=== PATIENT | male | born 1940 | race Caucasian/White ===

== ENCOUNTER 2016-09-14 20:56 | Emergency (ER) | payer BC ==
[~2016-09-14] VITALS: Ht 172.7 cm; Wt 80.3 kg
[~2016-09-14 20:56] MED LIST: ASPI81TA21 PO; CRD4 PO; CYAN10005 PO; FRRG27 PO; MULT-506 PO; NAPR220T40 PO; PRLSR20 PO; PRN10125 PO; SIMV20TA2 PO
[2016-09-14 20:58] VITALS: TEMP 36.5; Ht 172.7 cm; Wt 80.3 kg
[2016-09-14] MEDS ORDERED: KETOROLAC TROMETHAMINE 30 MG/ML VIAL IV STA (21:54)
--- NOTE | 2016-09-14 22:13 | EMERGENCY ROOM VISIT NOTE ---
History Report prepared by Hever: Giovanny Mora Under the Supervision of: Dr. Morgan Alan M.D. First contact with patient: 21:43 Chief Complaint: CHEST PAIN Stated Complaint: LT SIDE CHEST PAIN, SHOULDER PAIN Nursing Triage Summary: patient with history of this intermittent shoulder chest spasms that come and go. states he has had them before but not as bad as this is now. states that he has some nausea with the pain. no cardiac history History of Present Illness The patient is a 75 year old male who presents to the Emergency Room with complaints of intermittent and severe left sided chest pain which radiates to his left shoulder starting this morning. The pain lasts for a few seconds at a time. He has some pain relief with applying heat. He has a history of similar symptoms occurring with inflammatory joint disease. However, he reports his current pain is much more severe than normal. He denies any recent injuries, shortness of breath, nausea, vomiting, or any other complaints. He denies any history of heart disease. He has a history of hypertension. He takes 81 mg Aspirin but denies any other blood thinners. His pain is episodic and feels like a spasm it is worse if he moves certain ways. No injury or trauma. No numbness weakness. No fever or chills. No lightheadedness or dizziness. Source of History: patient, spouse/significant other Onset: this morning Position: chest (left) Symptom Intensity: severe Timing: intermittent Modifying Factors (Relieving): heat Associated Symptoms: No SOB, No nausea, No vomiting Review of Systems See HPI for pertinent positives & negatives. A total of 10 systems reviewed and were otherwise negative. Past Medical & Surgical Medical Problems: (1) Hypertension Old medical records were reviewed. Nurse's notes were reviewed and I agree with. Denies history of cardiac disease, diabetes, hypertension, pulmonary disease Family History Patient reports no known family medical history. Social History Smoking Status: Former Smoker Drug Use: none Marital Status: Occupation Status: employed Current/Historical Medications Scheduled Aspirin Enteric Coated (Ecotrin Or Generic), 81 MG PO DAILY Cyanocobalamin (Vitamin B-12), 1,000 MCG PO DAILY Doxazosin Mesylate (Cardura *), 6 MG PO QPM Ferrous Gluconate (Iron Supplement), 27 MG PO DAILY Hydrochlorothiazide (Hctz), 12.5 MG PO DAILY Simvastatin (Zocor), 20 MG PO QPM Scheduled PRN Naproxen Sodium (Aleve), 220 MG PO Q4H PRN Omeprazole (Prilosec), 20 MG PO DAILY PRN Allergies Coded Allergies: No Known Allergies (Verified , ., 09/14/16) Physical Exam Vital Signs Date Time Temp Pulse Resp B/P Pulse Ox O2 Delivery O2 Flow Rate FiO2 09/14/16 23:37 72 16 123/81 95 09/14/16 22:59 82 18 102/68 09/14/16 21:31 71 09/14/16 20:58 36.5 81 20 147/85 93 Room Air Physical Exam General: Non-ill appearing, older male, in no acute distress. HEENT: Normal cephalic atraumatic. Pupils are equal round and reactive to light. Sclerae anicteric. Extraocular movements are intact. Oropharynx is pink with moist mucous membranes. No swelling of the mouth lips or tongue. Neck: Supple with a midline trachea. No meningeal signs or stiffness, no JVD or bruits. No Stridor. Chest: Clear to auscultation bilaterally. No wheezes or rhonchi. No increased work of breathing. Heart: regular rate and rhythm. Abdomen: Soft nontender, nondistended without rebound guarding or rigidity. Extremities: No cyanosis clubbing or edema. No calf tenderness or assymetry. Reproducible arm pain with movement. Spine/Back. Non tender to palpation. No CVA tenderness Skin: Good turgor without rashes. Neurologic exam: Cranial nerves two through 12 are intact. Motor and sensation are intact and symmetrical throughout. Medical Decision & Procedures ER Provider Diagnostic Interpretation: X-ray results as stated below per interpretation by me and the radiologist: CHEST ONE VIEW PORTABLE CLINICAL HISTORY: CHEST PAIN dyspnea COMPARISON STUDY: 02/07/2014 FINDINGS: Mild stable cardiomegaly. Fixed hiatal hernia. Plaque atelectasis left base. Lungs otherwise appear clear. IMPRESSION: Platelike atelectasis left base. Fixed hiatal hernia. Otherwise negative study. Electronically signed by: Frankie Heath M.D. 09/14/2016 10:14 PM Laboratory Results 09/14/16 22:20 Red Blood Count 4.61, Mean Corpuscular Volume 89.8, Mean Corpuscular Hemoglobin 31.2, Mean Corpuscular Hemoglobin Concent 34.8, Mean Platelet Volume 10.1, Neutrophils (%) (Auto) 79.2, Lymphocytes (%) (Auto) 7.8, Monocytes (%) (Auto) 12.3, Eosinophils (%) (Auto) 0.4, Basophils (%) (Auto) 0.1, Neutrophils # (Auto ) 7.90, Lymphocytes # (Auto) 0.78, Monocytes # (Auto) 1.23, Eosinophils # (Auto ) 0.04, Basophils # (Auto) 0.01 09/14/16 22:20 Test 09/14/16 22:20 09/14/16 22:32 White Blood Count 9.98 K/uL (4.8-10.8) Red Blood Count 4.61 M/uL (4.7-6.1) Hemoglobin 14.4 g/dL (14.0-18.0) Hematocrit 41.4 % (42-52) Mean Corpuscular Volume 89.8 fL (80-100) Mean Corpuscular Hemoglobin 31.2 pg (25-34) Mean Corpuscular Hemoglobin Concent 34.8 g/dl (32-36) Platelet Count 138 K/uL (130-400) Mean Platelet Volume 10.1 fL (7.4-10.4) Neutrophils (%) (Auto) 79.2 % Lymphocytes (%) (Auto) 7.8 % Monocytes (%) (Auto) 12.3 % Eosinophils (%) (Auto) 0.4 % Basophils (%) (Auto) 0.1 % Neutrophils # (Auto) 7.90 K/uL (1.4-6.5) Lymphocytes # (Auto) 0.78 K/uL (1.2-3.4) Monocytes # (Auto) 1.23 K/uL (0.11-0.59) Eosinophils # (Auto) 0.04 K/uL (0-0.5) Basophils # (Auto) 0.01 K/uL (0-0.2) RDW Standard Deviation 40.2 fL (36.4-46.3) RDW Coefficient of Variation 12.3 % (11.5-14.5) Immature Granulocyte % (Auto) 0.2 % Immature Granulocyte # (Auto) 0.02 K/uL (0.00-0.02) Anion Gap 8.0 mmol/L (3-11) Est Creatinine Clear Calc Drug Dose 56.1 ml/min Estimated GFR () 75.7 Estimated GFR (Non- 65.3 BUN/Creatinine Ratio 27.3 (10-20) Calcium Level 9.2 mg/dl (8.5-10.1) Total Creatine Kinase 154 U/L (39-308) Creatine Kinase MB 4.7 ng/ml (0.5-3.6) Creatine Kinase MB Ratio 3.1 (0-3.0) Bedside Troponin I 0.000 ng/ml (0-0.045) Laboratory studies as stated above per my review. Medications Administered Medications (Trade) Dose Ordered Sig/Reta Route Start Time Stop Time Status Last Admin Dose Admin Ketorolac Tromethamine (Toradol Inj) 30 mg NOW STAT IV 09/14/16 21:54 09/14/16 21:57 DC 09/14/16 22:32 30 MG ECG Indication: chest pain Rate (beats per minute): 75 Rhythm: normal sinus Findings: no acute ischemic change, no ectopy Comparison ECG Date: January 15, 2009 Change: Rate has increased, otherwise no change when compared to January 15, 2009. ED Course 2142: Past medical records reviewed. The patient was evaluated in room B04B, and a complete history and physical examination were performed. 2153: Toradol Inj 30 mg IV 2310: Upon reevaluation, the patient is feeling better. I discussed the results and treatment plan with him. He verbalized agreement of the treatment plan. The patient was discharged home. Medical Decision Differential diagnosis includes but is not limited to acute coronary syndrome, arrhythmia, musculoskeletal, infection, electrolyte or metabolic abnormality. This patient comes in as described above he's having pain in his left shoulder. He does have a history of rheumatologic issues and has pain just seems to worse. He looks well on exam. He was minimally tender however when I moved his shoulder this reproduced the pain significantly. It's not red or warm. it seems he tender along the scapula. He has no evidence of infection. IV access established. He was given 30 mg of Toradol IV and blood testing was obtained. EKG does not suggest any acute cardiac event or ischemia. Chest x-ray was unremarkable shows. No pneumonia or pneumothorax or CHF. He has no acute electrolyte or metabolic abnormalities. He feels significantly better. His troponin is not elevated and his symptoms are very atypical for cardiac disease. He strongly feels up to going home at think this is reasonable. I encouraged him have close follow-up with the next 1-3 was regular doctor and return to the ER if: increasing pain, worsening of symptoms, fever or chills, any new problems concerns. He was happy with plan and discharged to home. Impression Primary Impression: Left shoulder pain Scribe Attestation The scribe's documentation has been prepared under my direction and personally reviewed by me in its entirety. I confirm that the note above accurately reflects all work, treatment, procedures, and medical decision making performed by me. Departure Information Dispostion Home / Self-Care Referrals Jarteh Cristina M.D. (PCP) Forms HOME CARE DOCUMENTATION FORM, IMPORTANT VISIT INFORMATION Patient Instructions A Signature Page, My [facility] Additional Instructions Rest Drink plenty of fluids Use Aleve or ibuprofen if needed for pain Return if: Increasing pain, worsening of symptoms, shortness of breath, any new problems or concerns. Follow-up with your doctor in 1-2 days for recheck
--- NOTE | 2016-09-14 22:16 | DIAGNOSTIC IMAGING REPORT ---
CHEST ONE VIEW PORTABLE CLINICAL HISTORY: CHEST PAIN dyspnea COMPARISON STUDY: 02/07/2014 FINDINGS: Mild stable cardiomegaly. Fixed hiatal hernia. Plaque atelectasis left base. Lungs otherwise appear clear. IMPRESSION: Platelike atelectasis left base. Fixed hiatal hernia. Otherwise negative study. Electronically signed by: Frankie Heath M.D. 09/14/2016 10:14 PM
[2016-09-14 22:37] LABS: BASO % 0.1 %; BASO ABS # 0.01 K/uL (0-0.2); COMPLETE YES; EOS % 0.4 %; HEMATOCRIT 41.4 % (42-52); IG% 0.2 %; LYMPH % 7.8 %; LYMPH ABS # 0.78 K/uL (1.2-3.4); MEAN CELL VOLUME 89.8 fL (80-100); MEAN CORPUSCULAR HEMOGLOBIN 31.2 pg (25-34); MEAN CORPUSCULAR HGB CONC 34.8 g/dl (32-36); MEAN PLATELET VOLUME 10.1 fL (7.4-10.4); MONO % 12.3 %; NEUT % 79.2 %; PLATELET COUNT 138 K/uL (130-400); RED BLOOD COUNT 4.61 M/uL (4.7-6.1); WHITE BLOOD COUNT 9.98 K/uL (4.8-10.8)
[2016-09-14] MEDS ORDERED: HYDR12.56 PO (22:43)
[2016-09-14 22:53] LABS: BUN/CREATININE RATIO 27.3 (10-20); CALCIUM 9.2 mg/dl (8.5-10.1); CREATININE 1.1 mg/dl (0.60-1.40); POTASSIUM 4.1 mmol/L (3.5-5.1)
[2016-09-14 22:57] LABS: CKMB/CK RATIO 3.1 (0-3.0)
[2016-09-14 23:37] VITALS: BP 123/81; PULSE 72; O2SAT 95
[2016-11-22] MEDS ORDERED: IRON PO (13:29)
[2016-11-22] MEDS ORDERED: CYAN100020 PO (13:29)
[2016-11-22] MEDS ORDERED: NAPR1TAB9 PO (13:29)
[2016-11-22] MEDS ORDERED: HYDR12.55 PO (13:29)
[2016-11-22] MEDS ORDERED: ASPCH81X PO (13:29)
[2016-11-22] MEDS ORDERED: DOXA4TAB5 PO (13:29)
[2016-11-22] MEDS ORDERED: CALC8.5C PO (13:29)
[2016-11-22] MEDS ORDERED: SIMV20TA2 PO (13:29)
[2016-11-30] MEDS ORDERED: PRED1SUS3 OPR (06:36)
[2016-12-09] MEDS ORDERED: NEPA0.6D OPR (12:50)
== END 2016-09-14 23:40 | disposition home or self-care (01) ==
LOC: C.EDB 20:58
DX: M25.512 Pain in left shoulder (principal); I10 Essential (primary) hypertension; Z79.82 Long term (current) use of aspirin; Z79.899 Other long term (current) drug therapy

== ENCOUNTER → 2016-11-30 | Day surgery (SDC) | payer BC ==
[2016-11-22 13:29] VITALS: Ht 172.7 cm; Wt 79.5 kg
[~2016-11-30] VITALS: Ht 172.7 cm; Wt 79.5 kg
[~2016-11-30] MED LIST changes: +500ML BSS 0.3ML EPI 1:1000PF IRRIG ONE; +ACETAMINOPHEN 325 MG TAB PO PRN; +AMVISC PLUS 0.8ML SYRINGE INT OCU ONE; +ASPCH81X PO; -ASPI81TA21 PO; +ATROPINE SULFATE 0.1 MG/ML 5ML SYR IV PRN; +AcetaZOLAMIDE 250 MG TAB PO SCH; +BETAXOLOL HCL 0.25% OP SUSP PER DROP CHARGE OPR SCH; +BRIMONIDINE TART 0.2% OP SOLN PER DROP CHARGE ONE; +BSS FLUSH ONE; +CALC8.5C PO; -CRD4 PO; +CYAN100020 PO; -CYAN10005 PO; +DOXA-22 PO; +ENDOCOAT 0.85ML SYRINGE INT OCU ONE; +EpHEDrine SULFATE INJ 50 MG/ML AMP IV PRN; +EpINEphrine INJ 1MG/ML AMP 1 MG/ML AMP ONE; -FRRG27 PO; +HYDR12.55 PO; +IRON PO; +LACTATED RINGER'S 1000ML 500 ML IV SCH; +LIDOCAINE 4% OP SOLN DROP CHARGE ONE; +LIDOCAINE 4% OP SOLN DROP CHARGE OPR SCH; +LIDOCAINE HCL 1% MPF 2 ML VIAL ONE; +MIDAZOLAM HCL 1 MG/ML 2ML VIAL ONE; +MIX: 4ML BSS 1ML EPI 1:1000 PF INSTIL ONE; +MOXIFLOXACIN OPH SOLN PER DROP CHARGE ONE; -MULT-506 PO; +NAPR1TAB9 PO; -NAPR220T40 PO; +NEPA0.6D OPR; +OCUCOAT 1 ML SOLN IO ONE; +POVIDONE-IODINE OP SOLN 30 ML BTL ONE; +PRED1SUS3 OPR; -PRLSR20 PO; -PRN10125 PO; +PROPARACAINE 0.5% OP SOLN PER DROP CHARGE OPR SCH; +PROPARACAINE HCL 0.5% OP SOLN 15 ML BTL OPR ONE; +TOBRAMYCIN/DEXAMETHASONE OPH OINT PER APPLN CHARGE ONE
[2016-11-30] MEDS: PHENYLEPHRINE HCL 2.5% OP SOLN PER DROP CHARGE OPR SCH ×2 (06:30→06:35)
[2016-11-30] MEDS: TROPICAMIDE 1% OP SOLN PER DROP CHARGE OPR SCH ×2 (06:31→06:36)
[2016-11-30] MEDS: CYCLOPENTOLATE HCL 1% OP SOLN PER DROP CHARGE OPR SCH ×2 (06:32→06:37)
[2016-11-30] MEDS: MOXIFLOXACIN OPH SOLN PER DROP CHARGE OPR SCH ×2 (06:33→06:43)
[2016-11-30] MEDS: AcetaZOLAMIDE 250 MG TAB ONE (06:34)
--- NOTE | 2016-11-30 06:44 | History & Physical Bridge - SC ---
H&P Re-Evaluation Bridge Note: I have examined the patient, reviewed the History & Physical and in the interval since the performance of the History & Physical I have noted the following changes of clinical significance: No changes noted
--- NOTE | 2016-11-30 07:19 | Discharge Instructions-SurgCtr ---
Discharge Instructions Date of Service Nov 30, 2016. Visit Reason for Visit: Cataract Right Eye Discharge Discharge Diagnosis / Problem: lens implant right eye Discharge Goals Goal(s): Improve function Activity Recommendations Activity Limitations: resume your previous activity Lifting Limitations: no more than 10 pounds Exercise/Sports Limitations: gradually increase as tolerated May Resume Sexual Activity: when tolerated Shower/Bathe: tomorrow Driving or Machine Use: resume 1 day after discharge Anesthesia . Post Anesthesia Instructions: If you have had General Anesthesia or IV Sedation: * Do not drive today. * Resume driving when surgeon permits. * Do not make important decisions or sign legal documents today. * Call surgeon for: 1. Temperature elevations greater than 101 degrees F. 2. Uncontrollable pain. 3. Excessive bleeding. 4. Persistent nausea and vomiting. 5. Medication intolerance (nausea, vomiting or rash). * For nausea and vomiting use only clear liquids such as: tea, soda, bouillon until nausea subsides, then gradually increase diet as tolerated. * If you have any concerns or questions, call your surgeon's office. If physician is unavailable and it is an emergency, call 911 or go to the nearest emergency room. . Instructions / Follow-Up Instructions / Follow-Up ACTIVITY RECOMMENDATIONS: * Light activities. * Mild irritation and blurred vision are common for the first few days. * You may walk outside, read, watch television. * Redness around the white part of the eye is common. MEDICATIONS: Resume previous medications unless instructed otherwise by your surgeon. * Take white Diamox (Acetazolamide) tablet at 1 pm today. Start all eye drops at 1 pm today: * Eye drops (today and tomorrow): Prednisone - one drop in operative eye every 3 hours while awake Ofloxacin - one drop in operative eye every 3 hours while awake Ilevro - one drop in operative eye once a day SPECIAL CARE INSTRUCTIONS: * Tape plastic shield over eye to sleep at night. Call your doctor at with any concerns or problems. FOLLOW UP VISIT: Follow-up with Dr Barros at [place] office as scheduled. Diet Recommendations Home Diet: no limitations Procedures Procedures Performed: Right Cataract Phacoemulsification With Intraocular Lens Implant Pending Studies Studies pending at discharge: no Medical Emergencies . Who to Call and When: Medical Emergencies: If at any time you feel your situation is an emergency, please call 911 immediately. . Non-Emergent Contact Non-Emergency issues call your: Cat Dog Or Other Pet Groomer Call Non-Emergent contact if: your pain is not controlled [phone] . . "Provider Documentation" section prepared by Chester Barros.
[2016-11-30 07:23] VITALS: TEMP 36.5
--- NOTE | 2016-11-30 07:23 | [facility] Operative Report ---
Operative Report Date of Service Nov 30, 2016. Operative Report 1. PREOPERATIVE DIAGNOSIS: Senile nuclear cataract, right eye. 2. POSTOPERATIVE DIAGNOSIS: Senile nuclear cataract, right eye. 3. PROCEDURE: Phacoemulsification of right cataract with posterior chamber lens implant, type Bausch [employer] Lomb, model MX60, power +19.0 diopters. ANESTHESIA: Local standby. SURGEON: Dr. Barros. COMPLICATIONS: None. OPERATING TIME: 10 minutes. 4. OPERATION AND FINDINGS: DESCRIPTION OF PROCEDURE: The right pupil was dilated. The patient was transported to the femto laser. The laser was used to make the primary incision and a keratotomy incision and the capsulorrhexis and to divide the nucleus. The anesthetic was administered using a topical technique. The right eye was prepped and draped. A speculum was placed. A clear corneal incision was formed. The chamber was filled with Amvisc Plus and Endocoat. Epinephrine solution was used. A paracentesis was placed. The nucleus was hydrodissected. The lens was removed with phacoemulsification. Time was 2.13 seconds. The aspiration unit was used to remove the cortex. The capsule was filled with Amvisc Plus. The lens implant was folded and placed into the capsule. The incision was hydrated. The Amvisc was aspirated. The wound was secure. The chamber was deep. The pupil was round. TobraDex ointment and Vigamox solution were placed. The speculum was removed. The patient was returned to the Recovery Room in stable condition. I attest to the content of the Intraoperative Record and any orders documented therein. Any exceptions are noted below. The scribe's documentation has been prepared in my presence, under my direction and personally reviewed by me in its entirety. I confirm that the note above accurately reflects all work, treatment, procedures, and medical decision making performed by me. I personally scribed for Chester Barros M.D. ([email or web address]) on 11/30/16 at 07:23. Electronically submitted by Amanda Garcia ([email or web address]).
[2016-11-30 07:45] VITALS: BP 156/89; PULSE 65; O2SAT 95
--- NOTE | 2016-11-30 07:49 | Anesthesia Progress Nt - [facility] ---
Anesthesia Post Op Note Date & Time Nov 30, 2016 at 07:49 Vital Signs Pain Intensity: 0 Vital Signs Past 12 Hours Date Time Temp Pulse Resp B/P Pulse Ox O2 Delivery O2 Flow Rate FiO2 11/30/16 07:45 65 16 156/89 95 Room Air 11/30/16 07:23 36.5 64 12 150/90 96 Room Air 11/30/16 07:04 75 16 159/96 95 Room Air 11/30/16 06:57 67 18 160/96 94 Room Air 11/30/16 06:37 75 162/93 11/30/16 06:24 37.1 68 16 176/102 97 Room Air Notes Mental Status: alert / awake / arousable, participated in evaluation Pt Amnestic to Procedure: Yes Nausea / Vomiting: adequately controlled Pain: adequately controlled Airway Patency, RR, SpO2: stable & adequate BP & HR: stable & adequate Hydration State: stable & adequate Anesthetic Complications: no major complications apparent
== END | disposition home or self-care (01) ==
LOC: X.SURG 06:06
PROVIDERS: ATTEND Specialist
DX: H25.11 Age-related nuclear cataract, right eye (principal); I10 Essential (primary) hypertension

== ENCOUNTER → 2016-12-14 | Day surgery (SDC) | payer BC ==
[2016-12-09 12:50] VITALS: Ht 172.7 cm; Wt 79.5 kg
[~2016-12-14] VITALS: Ht 172.7 cm; Wt 79.5 kg
[~2016-12-14] MED LIST changes: +BETAXOLOL HCL 0.25% OP SUSP PER DROP CHARGE OPL SCH; -BETAXOLOL HCL 0.25% OP SUSP PER DROP CHARGE OPR SCH; -DOXA-22 PO; +DOXA4TAB5 PO; +LIDOCAINE 4% OP SOLN DROP CHARGE OPL SCH; -LIDOCAINE 4% OP SOLN DROP CHARGE OPR SCH; +PROPARACAINE 0.5% OP SOLN PER DROP CHARGE OPL SCH; -PROPARACAINE 0.5% OP SOLN PER DROP CHARGE OPR SCH; -PROPARACAINE HCL 0.5% OP SOLN 15 ML BTL OPR ONE
[2016-12-14] MEDS: PHENYLEPHRINE HCL 2.5% OP SOLN PER DROP CHARGE OPL SCH ×2 (09:19→09:24)
[2016-12-14] MEDS: TROPICAMIDE 1% OP SOLN PER DROP CHARGE OPL SCH ×2 (09:20→09:25)
[2016-12-14] MEDS: CYCLOPENTOLATE HCL 1% OP SOLN PER DROP CHARGE OPL SCH ×2 (09:21→09:26)
[2016-12-14] MEDS: MOXIFLOXACIN OPH SOLN PER DROP CHARGE OPL SCH ×2 (09:22→09:32)
--- NOTE | 2016-12-14 10:09 | Discharge Instructions-SurgCtr ---
Discharge Instructions Date of Service Dec 14, 2016. Visit Reason for Visit: Left Cataract Discharge Discharge Diagnosis / Problem: lens implant left eye Discharge Goals Goal(s): Improve function Activity Recommendations Activity Limitations: resume your previous activity Lifting Limitations: no more than 10 pounds Exercise/Sports Limitations: gradually increase as tolerated May Resume Sexual Activity: when tolerated Shower/Bathe: tomorrow Driving or Machine Use: resume 1 day after discharge Anesthesia . Post Anesthesia Instructions: If you have had General Anesthesia or IV Sedation: * Do not drive today. * Resume driving when surgeon permits. * Do not make important decisions or sign legal documents today. * Call surgeon for: 1. Temperature elevations greater than 101 degrees F. 2. Uncontrollable pain. 3. Excessive bleeding. 4. Persistent nausea and vomiting. 5. Medication intolerance (nausea, vomiting or rash). * For nausea and vomiting use only clear liquids such as: tea, soda, bouillon until nausea subsides, then gradually increase diet as tolerated. * If you have any concerns or questions, call your surgeon's office. If physician is unavailable and it is an emergency, call 911 or go to the nearest emergency room. . Instructions / Follow-Up Instructions / Follow-Up ACTIVITY RECOMMENDATIONS: * Light activities. * Mild irritation and blurred vision are common for the first few days. * You may walk outside, read, watch television. * Redness around the white part of the eye is common. MEDICATIONS: Resume previous medications unless instructed otherwise by your surgeon. Start all eye drops at 1 pm today: * Eye drops (today and tomorrow): Prednisone - one drop in operative eye every 3 hours while awake Ofloxacin - one drop in operative eye every 3 hours while awake Ilevro - one drop in operative eye once a day SPECIAL CARE INSTRUCTIONS: * Tape plastic shield over eye to sleep at night. Call your doctor at with any concerns or problems. FOLLOW UP VISIT: Follow-up with Dr Barros at [place] office as scheduled. Diet Recommendations Home Diet: no limitations Procedures Procedures Performed: cataract extraction with lens implant Pending Studies Studies pending at discharge: no Medical Emergencies . Who to Call and When: Medical Emergencies: If at any time you feel your situation is an emergency, please call 911 immediately. . Non-Emergent Contact Non-Emergency issues call your: Rhythmic Gymnastics Coach Call Non-Emergent contact if: your pain is not controlled [phone] . . "Provider Documentation" section prepared by Chester Barros.
--- NOTE | 2016-12-14 10:11 | [facility] Operative Report ---
Operative Report Date of Service Dec 14, 2016. Operative Report 1. PREOPERATIVE DIAGNOSIS: Senile nuclear cataract, left eye. 2. POSTOPERATIVE DIAGNOSIS: Senile nuclear cataract, left eye. 3. PROCEDURE: Phacoemulsification of left cataract with posterior chamber lens implant, type B[employer]ch [employer] Lomb, model MX60, power +17.5 diopters. ANESTHESIA: Local standby. SURGEON: Dr. Barros. COMPLICATIONS: None. OPERATING TIME: 10 minutes. 4. OPERATION AND FINDINGS: DESCRIPTION OF PROCEDURE: The left pupil was dilated. The anesthetic was administered using a topical technique. The left eye was prepped and draped. A speculum was placed. A clear corneal incision was formed. The chamber was filled with Amvisc Plus and Endocoat. Epinephrine solution was used. A paracentesis was placed. A capsulorrhexis was performed. The nucleus was hydrodissected. The lens was removed with phacoemulsification. Time was 3.02 seconds. The aspiration unit was used to remove the cortex. The capsule was filled with Amvisc Plus. The lens implant was folded and placed into the capsule. The incision was hydrated. The Amvisc was aspirated. The wound was secure. The chamber was deep. The pupil was round. Brimonidine, TobraDex ointment and Vigamox solution were placed. The speculum was removed. The patient was returned to the Recovery Room in stable condition. I attest to the content of the Intraoperative Record and any orders documented therein. Any exceptions are noted below. The scribe's documentation has been prepared in my presence, under my direction and personally reviewed by me in its entirety. I confirm that the note above accurately reflects all work, treatment, procedures, and medical decision making performed by me. I personally scribed for Chester Barros M.D. ([email or web address]) on 12/14/16 at 10:11. Electronically submitted by Amanda Garcia ([email or web address]).
[2016-12-14 10:15] VITALS: TEMP 36.8
--- NOTE | 2016-12-14 10:29 | Anesthesia Progress Nt - [facility] ---
Anesthesia Post Op Note Date & Time Dec 14, 2016 at 10:29 Vital Signs Pain Intensity: 0 Vital Signs Past 12 Hours Date Time Temp Pulse Resp B/P Pulse Ox O2 Delivery O2 Flow Rate FiO2 12/14/16 09:08 36.5 70 16 170/103 95 Room Air Notes Mental Status: alert / awake / arousable, participated in evaluation Pt Amnestic to Procedure: Yes Nausea / Vomiting: adequately controlled Pain: adequately controlled Airway Patency, RR, SpO2: stable & adequate BP & HR: stable & adequate Hydration State: stable & adequate Anesthetic Complications: no major complications apparent
[2016-12-14 10:54] VITALS: BP 150/88; PULSE 67; O2SAT 94
== END | disposition home or self-care (01) ==
LOC: X.SURG 08:59
PROVIDERS: ATTEND Specialist
DX: H25.12 Age-related nuclear cataract, left eye (principal); I10 Essential (primary) hypertension

== ENCOUNTER → 2017-01-04 | Outpatient (CLI) | payer BC ==
[~2017-01-04] MED LIST changes: -500ML BSS 0.3ML EPI 1:1000PF IRRIG ONE; -ACETAMINOPHEN 325 MG TAB PO PRN; -AMVISC PLUS 0.8ML SYRINGE INT OCU ONE; -ATROPINE SULFATE 0.1 MG/ML 5ML SYR IV PRN; -AcetaZOLAMIDE 250 MG TAB PO SCH; -BETAXOLOL HCL 0.25% OP SUSP PER DROP CHARGE OPL SCH; -BRIMONIDINE TART 0.2% OP SOLN PER DROP CHARGE ONE; -BSS FLUSH ONE; -ENDOCOAT 0.85ML SYRINGE INT OCU ONE; -EpHEDrine SULFATE INJ 50 MG/ML AMP IV PRN; -EpINEphrine INJ 1MG/ML AMP 1 MG/ML AMP ONE; -LACTATED RINGER'S 1000ML 500 ML IV SCH; -LIDOCAINE 4% OP SOLN DROP CHARGE ONE; -LIDOCAINE 4% OP SOLN DROP CHARGE OPL SCH; -LIDOCAINE HCL 1% MPF 2 ML VIAL ONE; -MIDAZOLAM HCL 1 MG/ML 2ML VIAL ONE; -MIX: 4ML BSS 1ML EPI 1:1000 PF INSTIL ONE; -MOXIFLOXACIN OPH SOLN PER DROP CHARGE ONE; -OCUCOAT 1 ML SOLN IO ONE; -POVIDONE-IODINE OP SOLN 30 ML BTL ONE; -PROPARACAINE 0.5% OP SOLN PER DROP CHARGE OPL SCH; -TOBRAMYCIN/DEXAMETHASONE OPH OINT PER APPLN CHARGE ONE
[2017-01-04 12:19] LABS: BASO % 0.5 %; BASO ABS # 0.02 K/uL (0-0.2); COMPLETE YES; EOS % 3.5 %; HEMATOCRIT 41.4 % (42-52); IG% 0.3 %; LYMPH % 31.1 %; LYMPH ABS # 1.24 K/uL (1.2-3.4); MEAN CELL VOLUME 91.6 fL (80-100); MEAN CORPUSCULAR HEMOGLOBIN 31.2 pg (25-34); MEAN CORPUSCULAR HGB CONC 34.1 g/dl (32-36); MEAN PLATELET VOLUME 10.2 fL (7.4-10.4); MONO % 12.5 %; NEUT % 52.1 %; PLATELET COUNT 143 K/uL (130-400); RED BLOOD COUNT 4.52 M/uL (4.7-6.1); WHITE BLOOD COUNT 3.99 K/uL (4.8-10.8)
[2017-01-04 12:30] LABS: BLOOD UREA NITROGEN 29 mg/dl (7-18); BUN/CREATININE RATIO 29.7 (10-20); CARBON DIOXIDE 30 mmol/L (21-32); CHLORIDE 105 mmol/L (98-107); CREATININE 0.96 mg/dl (0.60-1.40); GLUCOSE 79 mg/dl (70-99); POTASSIUM 3.8 mmol/L (3.5-5.1); SODIUM 141 mmol/L (136-145)
[2017-01-04 12:37] LABS: CALCIUM 9.5 mg/dl (8.5-10.1)
== END | disposition home or self-care (01) ==
LOC: C.LAB 09:48
PROVIDERS: ATTEND Internal Medicine Geriatric Medicine
DX: I10 Essential (primary) hypertension (principal); J45.909 Unspecified asthma, uncomplicated; D64.9 Anemia, unspecified; M19.90 Unspecified osteoarthritis, unspecified site; M85.80 Other specified disorders of bone density and structure, unspecified site; E55.9 Vitamin D deficiency, unspecified

== ENCOUNTER → 2017-01-16 | Day surgery (SDC) | payer BC ==
[2017-01-12 14:06] VITALS: Ht 172.7 cm; Wt 78.6 kg
[~2017-01-16] VITALS: Ht 172.7 cm; Wt 78.6 kg
[~2017-01-16] MED LIST changes: +500ML BSSPLUS 0.5ML EPI1:1000 IRRIG ONE; +ACETAMINOPHEN 325 MG TAB PO PRN; +ATROPINE SULFATE 0.1 MG/ML 5ML SYR IV PRN; +ATROPINE SULFATE 1% OP OINT PER APPLICATION CHARGE ONE; +ATROPINE SULFATE 1% OP SOLN 2 ML BTL ONE; +BETADINE 5% TOP ONE; +BSS FLUSH ONE; +BUPIVACAINE HCL 0.75% 10 ML AMP/VIAL ONE; +CEFAZOLIN SOD 1 GM VIAL ONE; +DEXAMETHASONE SOD INJ 4 MG/ML VIAL ONE; +EpHEDrine SULFATE INJ 50 MG/ML AMP IV PRN; +EpINEphrine INJ 1MG/ML AMP 1 MG/ML AMP ONE; +FENTANYL CITRATE INJ 50 MCG/1 ML 2 ML VIAL IV PRN; +FLUMAZENIL 0.1 MG/1 ML 10 ML VIAL IV PRN; +HYALURONIDASE HUMAN 150 UNIT/ML INJ ONE; +HYDROmorphone INJ 2 MG/ML SYR/VIAL IV PRN; +INDOCYANINE GREEN 25 MG/10 ML ONE; +LABETALOL HCL IV 5 MG/ML 20ML IV PRN; +LACTATED RINGER'S 1000ML 500 ML IV SCH; +LIDOCAINE HCL 2% 2 ML VIAL (20MG/ML) ONE; +LIDOCAINE MPF 4% INJ INJ ONE; +MEPERIDINE HCL 25 MG/ML CARP IV PRN; +MIDAZOLAM HCL 1 MG/ML 2ML VIAL ONE; +NALOXONE HCL 0.4 MG/1 ML VIAL/CARP IV PRN; +NEOMYCIN/POLYMYX/DEXAMETH OP OINT PER APP CHARGE ONE; -NEPA0.6D OPR; +OCUCOAT 1 ML SOLN IO ONE; +ONDANSETRON INJ 2 MG/ML 2 ML VIAL IV PRN; +PHENYLEPHRINE 100MCG/ML 5ML SYR IV PRN; -PRED1SUS3 OPR; +PROPARACAINE 0.5% OP SOLN PER DROP CHARGE OPR SCH; +PROPOFOL IV EMULSION 10 MG/ML 20 ML VIAL IV ONE; +TIMOLOL MALEATE 0.5% OP SOLN PER DROP CHARGE ONE; +[UNRECOGNIZED DRUG - OTHER] TOP ONE
[2017-01-16] MEDS: PHENYLEPHRINE HCL 2.5% OP SOLN PER DROP CHARGE OPR SCH ×2 (06:34→06:39)
[2017-01-16] MEDS: TROPICAMIDE 1% OP SOLN PER DROP CHARGE OPR SCH ×2 (06:36→06:40)
--- NOTE | 2017-01-16 07:02 | History & Physical Bridge - [place] ---
H&P Re-Evaluation Bridge Note: pt has macular pucker right eye and is here for vitrectomy right eye. I have examined the patient, reviewed the History & Physical and in the interval since the performance of the History & Physical I have noted the following changes of clinical significance: No changes noted
--- NOTE | 2017-01-16 08:17 | [facility] Operative Report ---
Operative Report Date of Service January 16, 2017. Operative Report PREOPERATIVE DIAGNOSIS: Epiretinal membrane, right eye. ICD10: H35.371 POSTOPERATIVE DIAGNOSIS: same. PROCEDURE: 1. Pars plana vitrectomy, 23 gauge. 2. Membrane peeling of the internal limiting membrane and overlying epiretinal membrane. 3. Endolaser. All to the right eye. CPT CODE: 69052 SURGEON: Clement Espinoza D.O. COMPLICATIONS: None. ESTIMATED BLOOD LOSS: None. SPECIMENS: None. ANESTHESIA: Retrobulbar block and MAC. INDICATIONS FOR PROCEDURE: The patient has an epiretinal membrane that is visually significant. Vitrectomy surgery is indicated to decrease risk of vision loss and potentially improve vision. CONSENT: The risks, benefits and alternatives were discussed with the patient including but not limited to decreased visual acuity, failure to achieve desired results, loss of the eye, infection, pain, glaucoma, lens changes, retinal tears, retinal detachment, the need for more procedures, drooping of the eyelid, blindness, and double vision. The patient is aware of risks and consents to the surgery. Consent is signed and on the chart. OPERATION AND FINDINGS: The patient was brought to the operating room where the patient was identified by name, date, and medical record number. The surgical site was confirmed with the informed written consent. The patient was sedated by the anesthesiology team after which a 50:50 mixture of 4% lidocaine and 0.75% bupivacaine with hyaluronidase was administered in a standard retrobulbar fashion. A total of 4 ml was administered without difficulty. The patient was then prepped and draped in the usual sterile manner for retinal surgery. A wire lid speculum was placed and an Gibson 23-gauge trocar cannula system was employed. The inferior temporal trocar cannula was first placed in an angled fashion 3.75mm posterior to the surgical limbus and the infusion cannula was inserted into this cannula after which the intravitreal position was verified prior to turning the infusion on. Two more trocar cannulas were then inserted in an angled fashion, one in the superior temporal, and one in the superior nasal quadrant both 3.75mm posterior to the surgical limbus. A light pipe and vitrector were then introduced into the eye and the BIOM wide angle viewing system was brought into place. Standard core vitrectomy was performed the vitreous was insured to be totally detached from the posterior pole with the aid of the vitrector. Next 0.05ml of indocyanine green was placed over the macular surface to stain the internal limiting membrane. This was washed from the eye after 10 seconds. At this point a flat contact lens was placed on the surface of the eye and a flex scraper and ILM forceps were used to gently peel the internal limiting membrane and overlying epiretinal membrane off of the macular surface without difficulty. A double staining technique was used to ensure complete removal of the membranes from the central macula. At this point scleral depression was performed for 360 degrees and a very small retinal tear with pigment changes surrounding it at the the 10:30 clock meridian and a small round hole with surrounding pigment changes at the 1 o' clock meridian were noted and treated with endolaser. No other retinal tears and no retinal detachments were noted. The trocar cannulas were then removed and found to be water tight. The intraocular pressure was found to be within normal limits by palpation and subconjunctival injections of Kefzol and dexamethasone were administered inferiorly and superiorly. The wire lid speculum was removed. Maxitrol was applied to the surface of the eye. A light patch and shield were taped over the surface of the eye and the patient left the Operating Room in stable condition having tolerated the procedure well. DISPOSITION: The patient has an appointment the following morning in the Ophthalmology Clinic. The patient is to call immediately if there are any problems overnight. I attest to the content of the Intraoperative Record and any orders documented therein. Any exceptions are noted below.
--- NOTE | 2017-01-16 08:18 | Discharge Instructions-SurgCtr ---
Discharge Instructions Date of Service January 16, 2017. Visit Reason for Visit: Right Eye Epiretinal Membrane Discharge Discharge Diagnosis / Problem: same Discharge Goals Goal(s): Improve function Activity Recommendations Activity Limitations: per Instructions/Follow-up section Anesthesia . Post Anesthesia Instructions: If you have had General Anesthesia or IV Sedation: * Do not drive today. * Resume driving when surgeon permits. * Do not make important decisions or sign legal documents today. * Call surgeon for: 1. Temperature elevations greater than 101 degrees F. 2. Uncontrollable pain. 3. Excessive bleeding. 4. Persistent nausea and vomiting. 5. Medication intolerance (nausea, vomiting or rash). * For nausea and vomiting use only clear liquids such as: tea, soda, bouillon until nausea subsides, then gradually increase diet as tolerated. * If you have any concerns or questions, call your surgeon's office. If physician is unavailable and it is an emergency, call 911 or go to the nearest emergency room. . Instructions / Follow-Up Instructions / Follow-Up * May take Tylenol if needed for discomfort. * Do NOT remove eye shield. * NO straining, heavy lifting (>15 pounds) or bending below waist. * Avoid getting water or soap directly into operative eye. * Do NOT rub eye. If you experience increasing eye pain not relieved by medication, please contact us immediately at [phone]. If you are unable to reach someone at the above number, call [phone] and ask to speak with the EYE DOCTOR ON SITE NURSE. Inform them that you are a Dr. Espinoza patient who had recent surgery. Diet Recommendations Home Diet: resume previous diet Procedures Procedures Performed: Right Eye 23 Gauge Vitrectomy, Membrane Peeling with Laser Pending Studies Studies pending at discharge: no Medical Emergencies . Who to Call and When: Medical Emergencies: If at any time you feel your situation is an emergency, please call 911 immediately. . Non-Emergent Contact Non-Emergency issues call your: Telescope Repairer . . "Provider Documentation" section prepared by Clement Espinoza. .
[2017-01-16 08:27] VITALS: TEMP 36.4
--- NOTE | 2017-01-16 08:31 | Anesthesia Progress Nt - [facility] ---
Anesthesia Post Op Note Date & Time January 16, 2017 at 08:32 Vital Signs Pain Intensity: 0 Vital Signs Past 12 Hours Date Time Temp Pulse Resp B/P Pulse Ox O2 Delivery O2 Flow Rate FiO2 01/16/17 08:27 36.4 65 16 163/96 98 Room Air 01/16/17 06:28 36.8 70 16 168/99 94 Room Air Notes Mental Status: alert / awake / arousable, participated in evaluation Pt Amnestic to Procedure: Yes Nausea / Vomiting: adequately controlled Pain: adequately controlled Airway Patency, RR, SpO2: stable & adequate BP & HR: stable & adequate Hydration State: stable & adequate Anesthetic Complications: no major complications apparent
[2017-01-16 09:01] VITALS: PULSE 56; O2SAT 96
[2017-01-16 09:05] VITALS: BP 145/91
== END | disposition home or self-care (01) ==
LOC: X.SURG 06:05
PROVIDERS: ATTEND Ophthalmology
DX: H35.371 Puckering of macula, right eye (principal); J45.909 Unspecified asthma, uncomplicated; E78.5 Hyperlipidemia, unspecified; K21.9 Gastro-esophageal reflux disease without esophagitis; I10 Essential (primary) hypertension; M19.90 Unspecified osteoarthritis, unspecified site; G62.9 Polyneuropathy, unspecified; M06.4 Inflammatory polyarthropathy; Z96.659 Presence of unspecified artificial knee joint; Z87.891 Personal history of nicotine dependence

== ENCOUNTER → 2017-08-16 | Outpatient (CLI) | payer BC ==
[~2017-08-16] MED LIST changes: -500ML BSSPLUS 0.5ML EPI1:1000 IRRIG ONE; -ACETAMINOPHEN 325 MG TAB PO PRN; -ATROPINE SULFATE 0.1 MG/ML 5ML SYR IV PRN; -ATROPINE SULFATE 1% OP OINT PER APPLICATION CHARGE ONE; -ATROPINE SULFATE 1% OP SOLN 2 ML BTL ONE; -BETADINE 5% TOP ONE; -BSS FLUSH ONE; -BUPIVACAINE HCL 0.75% 10 ML AMP/VIAL ONE; -CEFAZOLIN SOD 1 GM VIAL ONE; -DEXAMETHASONE SOD INJ 4 MG/ML VIAL ONE; -EpHEDrine SULFATE INJ 50 MG/ML AMP IV PRN; -EpINEphrine INJ 1MG/ML AMP 1 MG/ML AMP ONE; -FENTANYL CITRATE INJ 50 MCG/1 ML 2 ML VIAL IV PRN; -FLUMAZENIL 0.1 MG/1 ML 10 ML VIAL IV PRN; -HYALURONIDASE HUMAN 150 UNIT/ML INJ ONE; -HYDROmorphone INJ 2 MG/ML SYR/VIAL IV PRN; -INDOCYANINE GREEN 25 MG/10 ML ONE; -LABETALOL HCL IV 5 MG/ML 20ML IV PRN; -LACTATED RINGER'S 1000ML 500 ML IV SCH; -LIDOCAINE HCL 2% 2 ML VIAL (20MG/ML) ONE; -LIDOCAINE MPF 4% INJ INJ ONE; -MEPERIDINE HCL 25 MG/ML CARP IV PRN; -MIDAZOLAM HCL 1 MG/ML 2ML VIAL ONE; -NALOXONE HCL 0.4 MG/1 ML VIAL/CARP IV PRN; -NEOMYCIN/POLYMYX/DEXAMETH OP OINT PER APP CHARGE ONE; -OCUCOAT 1 ML SOLN IO ONE; -ONDANSETRON INJ 2 MG/ML 2 ML VIAL IV PRN; -PHENYLEPHRINE 100MCG/ML 5ML SYR IV PRN; -PROPARACAINE 0.5% OP SOLN PER DROP CHARGE OPR SCH; -PROPOFOL IV EMULSION 10 MG/ML 20 ML VIAL IV ONE; -TIMOLOL MALEATE 0.5% OP SOLN PER DROP CHARGE ONE; -[UNRECOGNIZED DRUG - OTHER] TOP ONE
[2017-08-16 09:29] LABS: BASO % 0.3 %; BASO ABS # 0.01 K/uL (0-0.2); COMPLETE YES; EOS % 3.4 %; HEMATOCRIT 41.3 % (42-52); LYMPH % 28.9 %; LYMPH ABS # 1.12 K/uL (1.2-3.4); MEAN CELL VOLUME 93.4 fL (80-100); MEAN CORPUSCULAR HGB CONC 33.2 g/dl (32-36); MEAN PLATELET VOLUME 10.6 fL (7.4-10.4); MONO % 9.3 %; NEUT % 58.1 %; PLATELET COUNT 123 K/uL (130-400); RED BLOOD COUNT 4.42 M/uL (4.7-6.1); WHITE BLOOD COUNT 3.87 K/uL (4.8-10.8)
[2017-08-16 10:10] LABS: ALT/SGPT 22 U/L (12-78); AST/SGOT 18 U/L (15-37); BLOOD UREA NITROGEN 24 mg/dl (7-18); BUN/CREATININE RATIO 23.8 (10-20); CALCIUM 8.9 mg/dl (8.5-10.1); CARBON DIOXIDE 28 mmol/L (21-32); CHLORIDE 103 mmol/L (98-107); GLUCOSE 131 mg/dl (70-99); POTASSIUM 3.9 mmol/L (3.5-5.1); SODIUM 138 mmol/L (136-145)
[2017-08-16 10:23] LABS: ALKALINE PHOSPHATASE 59 U/L (45-117); CHOLESTEROL 146 mg/dl (0-200); CHOLESTEROL/HDL RATIO 2.6; HDL CHOLESTEROL 57 mg/dl; LDL CHOLESTEROL CALCULATED 73 mg/dl; TRIGLYCERIDES 78 mg/dl (0-150); VERY LOW DENSITY LIPOPROT CALC 16 mg/dl
== END | disposition home or self-care (01) ==
LOC: C.LAB 07:25
PROVIDERS: ATTEND Internal Medicine Geriatric Medicine
DX: I10 Essential (primary) hypertension (principal); J45.909 Unspecified asthma, uncomplicated; K21.9 Gastro-esophageal reflux disease without esophagitis; M19.90 Unspecified osteoarthritis, unspecified site; E78.5 Hyperlipidemia, unspecified; D64.9 Anemia, unspecified; M06.4 Inflammatory polyarthropathy

== ENCOUNTER → 2017-12-06 | Outpatient (CLI) | payer BC ==
[2017-12-06 10:01] LABS: BLOOD UREA NITROGEN 29 mg/dl (7-18); CALCIUM 9.3 mg/dl (8.5-10.1); CARBON DIOXIDE 28 mmol/L (21-32); CREATININE 1.07 mg/dl (0.60-1.40); GLUCOSE 139 mg/dl (70-99); POTASSIUM 3.6 mmol/L (3.5-5.1); SODIUM 138 mmol/L (136-145)
== END | disposition home or self-care (01) ==
LOC: C.LAB 07:16
PROVIDERS: ATTEND Urology
DX: N40.0 Benign prostatic hyperplasia without lower urinary tract symptoms (principal); I10 Essential (primary) hypertension

== ENCOUNTER 2019-09-23 08:37 | Inpatient (IN) ==
--- NOTE | 2019-08-26 12:31 | PAT Medication Instructions ---
Medication Instructions Date of Service August 26, 2019 Home Medications Medication Instructions Recorded doxazosin 4 mg tablet 6 mg PO PM #135 tab 04/29/19 simvastatin 20 mg tablet 20 mg PO PM #90 tab 04/29/19 ferrous sulfate 325 mg (65 mg iron) tablet,delayed release 325 mg PO QAM hydrochlorothiazide 12.5 mg capsule 12.5 mg PO QAM ketoconazole 2 % shampoo 1 appln TOPICAL 3XWK multivitamin-ferrous fumarate-folic acid 18 mg-400 mcg tablet 1 tab PO QAM naproxen sodium 220 mg tablet 220 - 440 mg PO DAILY PRN doxazosin 4 mg tablet 6 mg PO PM simvastatin 20 mg tablet 20 mg PO PM aspirin [Aspir-81] 81 mg PO QAM losartan 25 mg PO QPM ASK your surgeon for instructions naproxen sodium 220 mg tablet 220 - 440 mg PO DAILY PRN ASK your prescriber and surgeon aspirin [Aspir-81] 81 mg PO QAM STOP taking 24 hours before surgery ketoconazole 2 % shampoo 1 appln TOPICAL 3XWK DO NOT take the morning of surgery ferrous sulfate 325 mg (65 mg iron) tablet,delayed release 325 mg PO QAM hydrochlorothiazide 12.5 mg capsule 12.5 mg PO QAM multivitamin-ferrous fumarate-folic acid 18 mg-400 mcg tablet 1 tab PO QAM Take evening before surgery doxazosin 4 mg tablet 6 mg PO PM simvastatin 20 mg tablet 20 mg PO PM losartan 25 mg PO QPM Other Notes If you have any questions please call us at [phone] or [phone] or [phone] or [phone]
--- NOTE | 2019-08-27 12:50 | Anesthesiology Consultation ---
Date of Service August 27, 2019 Assessment & Plan (1) Encounter for pre-operative examination: Chart Review Chart Review: Acceptable Risk for Surgery (pending surgeon-ordered PCP clearance scheduled 09/10 ([facility])) and Patient seen in Pre Admission Testing Teaching & Discussion Pre-Anesthesia Teaching/Discussion Notes: Instructed NPO after midnight before surgery,except medications with 15 cc of water. Medication instructions provided according to the PAT guidelines. History Surgery Operation Date: 09/23/19 07:00 Proposed Procedures p Left Total Knee Arthroplasty Revision, Poly Teagan - Camilo Talamantes DO Height/Weight Height: 5 ft Weight: 81.6 kg Allergies Allergy/AdvReac Type Severity Reaction Status Date / Time milk Allergy LACTOSE Verified 08/20/19 13:43 INTOLERANT Medications Home Medications Medication Instructions Recorded Confirmed Last Taken ferrous sulfate 325 mg (65 mg 325 mg PO QAM tab 04/24/19 08/20/19 Unknown iron) tablet,delayed release hydrochlorothiazide 12.5 mg capsule 12.5 mg PO QAM #90 cap 04/24/19 08/20/19 Unknown ketoconazole 2 % shampoo 1 appln TOPICAL 3XWK #120 ml 04/24/19 08/20/19 Unknown multivitamin-ferrous 1 tab PO QAM 04/24/19 08/20/19 Unknown fumarate-folic acid 18 mg-400 mcg tablet naproxen sodium 220 mg tablet 220 - 440 mg PO DAILY PRN tab 04/24/19 08/20/19 Unknown doxazosin 4 mg tablet 6 mg PO PM #135 tab 04/29/19 08/20/19 Unknown simvastatin 20 mg tablet 20 mg PO PM #90 tab 04/29/19 08/20/19 Unknown aspirin [Aspir-81] 81 mg PO QAM 08/20/19 08/20/19 Unknown losartan 25 mg PO QPM 08/20/19 08/20/19 Unknown Past Medical History Medical History Anemia hx of blood transfusion post-op Asthma no recent issues/no inhalers BPH (benign prostatic hyperplasia) Hiatal hernia History of blood transfusion Hyperlipidemia Hypertension Obesity Osteoarthritis Exercise / Class Metabolic Activity III < 4 Walking/Shop/Light housework Past Family History Family History Family/Other Hypertension Past Surgical History Surgical History History of bilateral cataract extraction History of colonoscopy History of esophagogastroduodenoscopy (EGD) History of rectal surgery rectal tear repair History of total knee replacement R/L (2008) S/P inguinal hernia repair S/P tonsillectomy Past Anesthesia History No Hx of Anesthesia Complications and No Family Hx of Anesthesia Complications History of PONV No Hx of PONV and No Hx of Motion Sickness Social History Smoking Status: Never smoker Do You Dip or Chew Tobacco: No Hx Alcohol Use: Yes Alcohol type: wine alcohol intake frequency: holidays/special occasions only Hx Substance Use: No Review of Systems Patient denies chest pain, shortness of breath, reflux, cough, wheezing, palpitations. Physical Exam Vital Signs VITALS BP 136/82 P 65 TEMP 98.4 SP02 94%RA RESP 18 PHYSICAL Full neck and c-spine range of motion. Full TMJ range of motion. TMD 3 finger breaths Mallampati Score 3 Dentition: intact, crowns several "all over" Lungs: clear throughout to auscultation Cardiac: regular rate and rhythm, no murmurs noted Spine: normal Carotid arteries: negative bruit Extremities: no edema Testing Laboratory Results 08/27/19 13:12 08/27/19 13:12 PT 11.2 Seconds (9.0-12.0) 08/27/19 13:12 INR 1.1 (0.9-1.1) 08/27/19 13:12 APTT 26.9 Seconds (21.0-31.0) 08/27/19 13:12 Hemoglobin A1c 5.8 % (4.5-5.6) H 08/27/19 13:12 Urine Color Dark Yellow 08/27/19 Unknown Urine Appearance Clear (Clear) 08/27/19 Unknown Urine pH 5.0 (4.5-7.5) 08/27/19 Unknown Ur Specific [place] 1.028 (1.000-1.030) 08/27/19 Unknown Urine Protein Negative (Negative) 08/27/19 Unknown Urine Glucose (UA) Negative (Negative) 08/27/19 Unknown Urine Ketones Trace (Negative) H 08/27/19 Unknown Urine Nitrite Negative (Negative) 08/27/19 Unknown Ur Leukocyte Esterase Negative (Negative) 08/27/19 Unknown Blood Type AB Positive 08/27/19 13:12 Antibody Screen NEGATIVE 08/27/19 13:12 Electrocardiogram Date: 08/27/19 SR with 1st degree AVB at 64bpm. "Otherwise normal ECG." *unconfirmed report* Chest X-Ray Date: 08/27/19 No acute process within the chest. Moderate to large hiatus hernia, unchanged.
--- NOTE | 2019-08-27 13:44 | XRay Report ---
XR chest 2V PA/lateral HISTORY: PREOP COMPARISON: Chest 09/14/2016. FINDINGS: Moderate to large hiatus hernia is again noted. The lungs are clear. The heart is normal in size. No pleural effusions. No pneumothorax. IMPRESSION: No acute process within the chest. Moderate to large hiatus hernia, unchanged. ACT 112: Negative or not required by law. Electronically signed by: Guicho Landin M.D. 08/27/2019 1:42 PM
[2019-08-27 16:06] LABS: Basophils # (auto) 0.02 K/uL (0-0.2); Basophils % (auto) 0.4 %; Eosinophils # (auto) 0.09 K/uL (0-0.5); Eosinophils % (auto) 1.7 %; Hemoglobin 13.7 g/dL (14.0-18.0); Lymphocytes % (auto) 22.8 %; Mean Corpuscular Hemoglobin 31.6 pg (25-34); Mean Corpuscular Hgb Conc 33.4 g/dL (32-36); Mean Corpuscular Volume 94.7 fL (80-100); Mean Platelet Volume 10.4 fL (7.4-10.4); Monocytes # (auto) 0.45 K/uL (0.11-0.59); Monocytes % (auto) 8.5 %; Neutrophils # (auto) 3.51 K/uL (1.4-6.5); Neutrophils % (auto) 66.6 %; Platelet Count 157 K/uL (130-400); RDW Coefficient of Variation 12.2 % (11.5-14.5); RDW Standard Deviation 41.9 fL (36.4-46.3); Red Blood Count 4.33 M/uL (4.7-6.1); White Blood Count 5.27 K/uL (4.8-10.8)
[2019-08-27 16:06] LABS: Appearance Urine Clear (Clear); Bilirubin Urine Negative (Negative); Blood Urine Negative (Negative); Color Urine Dark Yellow; Glucose Urine UA Negative (Negative); Ketones Urine Trace (Negative); Leukocyte Esterase Urine Negative (Negative); Nitrite Urine Negative (Negative); Protein Urine Negative (Negative); Specific Gravity Urine 1.028 (1.000-1.030); Urobilinogen Urine Negative (Negative)
[2019-08-27 16:13] LABS: Albumin Level 3.7 gm/dl (3.4-5.0); BUN Creatinine Ratio 24.1 (10-20); Calcium 9.4 mg/dl (8.5-10.1); Creatinine Clr Calc Pharmacy 51.9 ml/min; Est GFR (African American) 79.3; Est GFR (Non-African American) 68.4; Potassium 3.9 mmol/L (3.5-5.1)
[2019-08-27 16:19] LABS: INR 1.1 (0.9-1.1); Partial Thromboplastin Time 26.9 Seconds (21.0-31.0); Prothrombin Time 11.2 Seconds (9.0-12.0)
[2019-08-28 05:59] LABS: Estimated Average Glucose 120 mg/dl; Hemoglobin A1C 5.8 % (4.5-5.6)
--- NOTE | 2019-09-21 12:57 | History & Physical Report ---
Date of Service September 21, 2019 Assessment & Plan (1) Failed total left knee replacement: I have indicated the patient for revision left total knee replacement. The risks, benefits and complications of surgery were explained to the patient which include but not limited to infection, acute blood loss, DVT/PE, injury to nerves, vessels, bone, soft tissue, arthrofibrosis, chronic pain, failure of the prosthesis, knee dislocation, leg length discrepancy, need for additional surgery, cardiac and pulmonary events and . The patient wished to proceed with surgery and informed consent was obtained at this time. We will plan for 81mg ASA BID post-operatively for DVT prophylaxis. Upon discharge the patient will be discharged home with home health services. Appropriate clearances by PCP were obtained. 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 The patient has failed outpatient conservative treatments to this point which included NSAIDs, bracing, PT, home exercise/walking program The patient's pain and limited function have progressed to the point where they severely hinder their activitie s of daily living and they no longer tolerate exercise programs. They are requesting to proceed with revision total knee replacement surgery. Allergies Allergy/AdvReac Type Severity Reaction Status Date / Time milk Allergy LACTOSE Verified 09/10/19 07:45 INTOLERANT Lisinopril TABS Allergy Unknown Uncoded 09/10/19 07:45 Home Medications Home Medications Medication Instructions Recorded Confirmed Type ferrous sulfate 325 mg (65 mg 325 mg PO QAM tab 04/24/19 09/10/19 History iron) tablet,delayed release hydrochlorothiazide 12.5 mg capsule 12.5 mg PO QAM #90 cap 04/24/19 09/10/19 History ketoconazole 2 % shampoo 1 appln TOPICAL 3XWK #120 ml 04/24/19 09/10/19 History multivitamin-ferrous 1 tab PO QAM 04/24/19 09/10/19 History fumarate-folic acid 18 mg-400 mcg tablet naproxen sodium 220 mg tablet 220 - 440 mg PO DAILY PRN tab 04/24/19 09/10/19 History doxazosin 4 mg tablet 6 mg PO PM #135 tab 04/29/19 09/10/19 Rx simvastatin 20 mg tablet 20 mg PO PM #90 tab 04/29/19 09/10/19 Rx aspirin [Aspir-81] 81 mg PO QAM 08/20/19 09/10/19 History losartan 25 mg PO QPM 08/20/19 09/10/19 History Past Med/Surg History Medical History Anemia hx of blood transfusion post-op Asthma no recent issues/no inhalers BPH (benign prostatic hyperplasia) Hiatal hernia History of blood transfusion Hyperlipidemia Hypertension Obesity Osteoarthritis Surgical History History of bilateral cataract extraction History of colonoscopy History of esophagogastroduodenoscopy (EGD) History of rectal surgery rectal tear repair History of total knee replacement R/L (2008) S/P inguinal hernia repair S/P tonsillectomy Family History Family/Other Hypertension Brother Prostate cancer Father Prostate cancer Social History Preferred Language: Maltese Communication Ability: Effective Visual Impairment: No Limitations Hearing Ability: Normal Photo Studio Assistant Required: No Beliefs That Will Affect Care: None marital status: Current Living Situation: Spouse Other Information That Helps Us Care for You: No Feels Safe at Home: Yes Safety Concerns: Feels Safe At This Time Smoking Status: Former smoker Do You Dip or Chew Tobacco: No ; Second Hand Exposure: No ; Hx Alcohol Use: Yes Alcohol type: wine Hx Substance Use: No Physical Activity Frequency: Daily Seatbelt Use: always Review of Systems Review of Systems: All systems reviewed & are unremarkable except as noted in HPI & below Constitutional: as per Subjective / HPI Physical Exam Physical Exam: LLE NVSI +EHL/FHL/TA/GS SILT grossly, +2 DP pulse, compartments soft NT, 0-125 degrees of flexion, mechanical clunk with extreme flexion followed by extension. Moderate varus/valgus instability. Constitutional: WD/WN, vitals as above Eyes: PERRL, conjunctivae normal, anicteric sclerae ENMT: external ear and nose normal, oropharynx normal Neck: trachea midline, no thyromegaly Respiratory: normal respiratory effort, lungs clear to auscultation Cardiovascular: RRR, no murmur, no edema Gastrointestinal (Abdomen): normal bowel sounds, soft, nontender, no hepatosplenomegaly Musculoskeletal: no cyanosis or clubbing, extremities motor strength 5/5 Skin: no rashes, warm and dry Neurologic: patellar DTR's 2+ bilat, sensation intact Psychiatric: A+Ox3, euthymic affect Lymphatic: no cervical or axillary lymphadenopathy Results & Data Diagnostic Findings XRs left knee demonstrate a well aligned well fixed total knee prothesis, lateral patella tilt, medial poly wear.
[~2019-09-23 08:37] MED LIST changes: +ACETAMINOPHEN 500 MG TAB PO SCH; -ASPCH81X PO; +BUPIVACAINE 0.5 % 5 MG/1 ML PF 10ML VIAL ONE; -CALC8.5C PO; +CEFAZOLIN 2000MG 2,000 MG/15 ML SYR IV SCH; -CYAN100020 PO; +CeleBREX 200 MG CAP PO SCH; -DOXA4TAB5 PO; +EPINEPHrine INJ 1 MG/ML AMP ONE; +GABAPENTIN 300 MG CAP PO SCH; -HYDR12.55 PO; -IRON PO; +LR 500ML BOLUS, THEN 15ML/HR IV SCH; +METOCLOPRAMIDE HCL 10 MG TABLET PO SCH; +MIDAZOLAM HCL 1 MG/ML 2ML VIAL ONE; -NAPR1TAB9 PO; +ROPIVACAINE 0.5% 5 MG/ML 30 ML VIAL ONE; +ROPIVACAINE 0.5% HCL/PF 150 MG, BUPIVACAINE 0.5% MPF 30 ML, EPINEPHrine 30MG/30ML (OR U... INSTIL SCH; -SIMV20TA2 PO; +TRANEXAMIC ACID 1,000 MG **IV Intra-op IV SCH; +dexAMETHasone 4 MG TAB PO SCH; +fentaNYL citrate 100 MCG/2 ML VIAL ONE
[2019-09-23] MEDS ORDERED: LABETALOL HCL IV 5 MG/ML 20ML IV PRN (08:55)
[2019-09-23] MEDS ORDERED: fentaNYL citrate 100 MCG/2 ML VIAL IV PRN (08:55)
[2019-09-23] MEDS ORDERED: ATROPINE SULFATE 0.1 MG/ML 10ML SYR IV PRN (08:55)
[2019-09-23] MEDS ORDERED: ePHEDrine sulfate 50 MG/ML AMP IV PRN (08:55)
[2019-09-23] MEDS ORDERED: PHENYLEPHRINE 100MCG/ML 5ML SYR IV PRN (08:55)
[2019-09-23] MEDS ORDERED: ONDANSETRON INJ 2 MG/ML 2 ML VIAL IV PRN ×2 (08:55→14:39)
[2019-09-23] MEDS ORDERED: HYDROmorphone INJ 1 MG/ML SYRINGE IV PRN (08:55)
[2019-09-23] MEDS ORDERED: MEPERIDINE HCL 25 MG/ML CARP IV PRN (08:55)
--- NOTE | 2019-09-23 09:01 | History & Physical Bridge Note ---
Date of Service September 23, 2019 History & Physical Bridge Note I have examined the patient, reviewed the History & Physical and in the interval since the performance of the History & Physical I have noted the following changes of clinical significance: no changes noted
[2019-09-23] MEDS ORDERED: BACITRACIN INJ 50,000 UNIT VIAL ONE (09:39)
[2019-09-23] MEDS ORDERED: ORTHO JOINT ANESTHETIC ONE (09:39)
[2019-09-23] MEDS: TRANEXAMIC ACID 1,000 MG **IV Pre-op IV SCH (11:02)
[2019-09-23] MEDS ORDERED: PROPOFOL IV EMULSION 10 MG/ML 20 ML VIAL IV ONE (11:16)
--- NOTE | 2019-09-23 12:08 | Post Operative Brief Note ---
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 I was immediately available: during the entire case. Back up surgeon: was not required during procedure.
--- NOTE | 2019-09-23 12:13 | Operative Report ---
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 I identified the patient and participated in the time-out.: Yes Procedure Operation Date: 09/23/19 11:10 Actual Procedures p Left Total Knee Arthroplasty Revision, Poly Swap(Left) - Camilo Talamantes DO Surgeon Camilo Talamantes, Dough Molder Hand Gokul Awan Estimated Blood Loss 25 Findings Consistent with Post-Op Diagnosis Specimens Tibial articular surface Drains 400 cc LR Anesthesia Type Spinal MAC Complications none Disposition Disposition: Recovery Room Indications The patient is a 70-year-old male presents with 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 The patient's symptoms have progressed to the point where it has been difficult to perform normal activities of daily living. I have indicated the patient for a revision left total knee arthroplasty, poly- exchange, the risks and benefits and complications of the procedure include but are not limited to infection bleeding damage to bone, nerves, vessels, surrounding soft tissue, blood clots, loss of function, leg length discrepancy, dislocation, failure of the components, need for additional surgery and . The patient wished to proceed with surgery at this time and informed consent was obtained. Appropriate clearances were obtained. Description of Procedure Following induction of spinal anesthesia, a tourniquet was applied to the proximal aspect of the thigh and the patient's left leg was prepped and draped in the usual sterile manner. A timeout was performed, patient identified and site mamadou verified. Appropriate pre-operative IV antibiotics were given. The limb was exsanguinated with an esmarch bandage and tourniquet was inflated to 300 mmHg. The prior incision was identified and a longitudinal midline incision was made over the anterior knee. Previous surgical scar was excised. Subcutaneous tissue was sharply dissected down to fascia. Electrocautery was used for hemostasis. Next a medial parapatellar arthrotomy was performed. Meticulous removal of hypertrophic synovium and scar tissue was removed with Bovie. The patella was subluxed laterally and the knee was flexed. A mascorro retractor was used to expose the synovium above on the anterior aspect of the femur and removed down to bone. Next, the anterior fat pad was removed to aid in visualization. The medial face of the tibia was cleared of soft tissue first with a bovie and a ocampo elevator. This tissue was retracted posteriorly using a blunt hohmann. Once adequate access was obtained to the total knee prosthesis we removed the tibial articular surface. There was a fracture of the tip of the tibial articular surface post. The fracture post piece was located in the joint and removed. The tibial tray was cleared of all soft tissue and debris. We carefully examined both the tibia and femur prosthesis which were found to be well fixed and without signs of wear. A size 11 PS tibial articular surface was trialed. Sequential trialing of tibial sizes was performed, increasing to a tibial articular surface size 13 PS. Varus-valgus balance was assessed in 0 degrees of extension and 30, 60 and 90 degrees of flexion. A final tibial articular surface size 13 PS was chosen. Access was gained to the patella and meticulous removal of fibrous soft tissue surrounding the patella button was removed. The patella was cleared of any remaining osteophytes utilizing the rongour. The patella button was found to be stable and well fixed without signs of wear. The knee was found to be well balanced, well aligned, with excellent patellar tracking. The trial tibial articular surface was removed and the knee was irrigated with copious amounts of sterile saline solution with bacitracin. Ortho mix was injected into the posterior capsule at this time. Access to the proximal tibia was once again obtained utilizing two bent hohmann retractors and the final tibial articular surface was inserted. The knee was injected with the remaining Orthomix solution. A bacitracin soak was performed for 3 minutes and the knee was irrigated once more with sterile saline solution mixed with bacitracin. The capsulotomy was closed with #1 Vicryl followed by subcutaneous closure with 2-0 Vicryl suture. Skin closure was performed using marlyn. Sterile dressings were applied which included Silverlon, Webril and Graham wrap. The tourniquet was deflated at 54 minutes. The patient was extubated in the OR and transported to the PACU in stable condition. Due to the complex nature of the procedure, the entire surgery was performed with the operational assistance of Gokul awan PA-C. The field administrative assistant, under direct supervision, was involved in the actual performance of all aspects of the surgical procedure including patient positioning, hemostasis, tissue retraction, instrument management and wound closure. I attest to the content of the Intraoperative Record and any orders documented therein. Any exceptions are noted below.
--- NOTE | 2019-09-23 13:09 | XRay Report ---
XR knee LT 1 or 2V routine CLINICAL HISTORY: 78 years-old Male presenting with Surgical Post Op. TECHNIQUE: Frontal and lateral views of the left knee were obtained. COMPARISON: None. FINDINGS: Postsurgical changes of total left knee arthroplasty with patellar resurfacing. Expected intra-articu lar and soft tissue emphysema. No malalignment or periprosthetic fracture. Overlying skin marlyn in place. IMPRESSION: Expected postsurgical appearance status post total left knee arthroplasty with patellar resurfacing. ACT 112: Negative or not required by law. Electronically signed by: Jay Mcbride M.D. 09/23/2019 1:08 PM
--- NOTE | 2019-09-23 14:00 | Orthopedic Progress Note ---
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 Still feeling effects of spinal anesthesia. Review of Systems Review of Systems: All systems reviewed & are unremarkable except as noted in HPI & below Constitutional: as per Subjective / HPI Physical Exam Physical Exam: LLE PE limited secondary to spinal anesthesia, +2 DP pulse compartments soft NT, dressing CDI. Constitutional: WD/WN, vitals as above Results & Data Vital Signs (Past 12 Hours) Vital Signs Temp Pulse Pulse Resp BP Pulse Ox 09/23/19 13:40 64 12 128/73 95 09/23/19 13:30 62 16 115/71 94 09/23/19 13:20 58 L 11 L 122/70 93 09/23/19 13:10 59 L 11 L 120/68 92 09/23/19 13:00 64 15 117/69 94 09/23/19 12:50 60 11 L 103/65 96 09/23/19 12:40 63 13 100/60 96 09/23/19 12:31 36.3 C L 70 13 84/47 L 96 09/23/19 09:08 36.4 C L 70 20 167/94 H 96
--- NOTE | 2019-09-23 14:16 | Anesthesiology Progress Note ---
Date of Service September 23, 2019 Anesthesia Post Procedure Vital Signs Vital Signs: Temp Pulse Pulse Resp BP Pulse Ox 09/23/19 14:10 61 21 128/79 93 09/23/19 14:00 36.3 C L 64 17 136/84 93 09/23/19 13:50 60 16 133/81 93 09/23/19 13:40 64 12 128/73 95 09/23/19 13:30 62 16 115/71 94 09/23/19 13:20 58 L 11 L 122/70 93 09/23/19 13:10 59 L 11 L 120/68 92 09/23/19 13:00 64 15 117/69 94 09/23/19 12:50 60 11 L 103/65 96 09/23/19 12:40 63 13 100/60 96 09/23/19 12:31 36.3 C L 70 13 84/47 L 96 09/23/19 09:08 36.4 C L 70 20 167/94 H 96 Pain Intensity Left Knee: Pain Intensity: 0 Transfer of Care Handoff Completed per policy Notes Mental Status: alert / awake / arousable Patient Amnestic to Procedure: Yes Nausea / Vomiting: adequately controlled Pain: adequately controlled Airway Patency, RR, SpO2: stable & adequate BP & HR: stable & adequate Hydration State: stable & adequate Neuraxial Anesthesia: was administered and sensory block is resolving Anesthetic Complications: no major complications apparent and Pt Satisfied with anesthetic care
[2019-09-23] MEDS ORDERED: METOCLOPRAMIDE HCL INJ 5 MG/ML 2 ML VIAL IV PRN (14:39)
[2019-09-23] MEDS ORDERED: HYDROmorphone INJ 0.5 MG/0.5 ML SYR IV PRN (14:39)
[2019-09-23] MEDS ORDERED: bisacodyL 10 MG SUPP PR PRN (14:39)
[2019-09-23] MEDS ORDERED: MAGNESIUM HYDROXIDE SUSP 30 ML UDC PO PRN (14:39)
[2019-09-23] MEDS ORDERED: NALOXONE HCL 0.4 MG/1 ML VIAL/CARP IV PRN (14:39)
[2019-09-23] MEDS ORDERED: HYDROCODONE/ACETAMOPHEN 5/325MG TAB PO PRN (14:39)
[2019-09-23] MEDS: SODIUM CHLORIDE 0.9% 1000ML 1,000 ML IV SCH (15:18)
[2019-09-23] MEDS: KETOROLAC TROMETHAMINE 15 MG/ML VIAL IV SCH ×2 (15:18→20:12)
[2019-09-23] MEDS: CEFAZOLIN 2000MG 2,000 MG/15 ML SYR IV SCH (18:33)
[2019-09-23] MEDS: DOCUSATE SODIUM 100 MG CAP PO SCH (20:11)
[2019-09-23] MEDS ORDERED: SIMVASTATIN 20 MG TAB PO SCH (21:00)
[2019-09-23] MEDS ORDERED: SENNA 8.6 MG TAB PO SCH (21:00)
[2019-09-23] MEDS ORDERED: DOXAZosin MESYLATE TAB 2 MG TAB PO SCH (21:00)
[2019-09-23] MEDS ORDERED: LOSARTAN POTASSIUM 25 MG TAB PO SCH (21:00)
[2019-09-24] MEDS: SODIUM CHLORIDE 0.9% 1000ML 1,000 ML IV SCH (01:21)
[2019-09-24] MEDS: KETOROLAC TROMETHAMINE 15 MG/ML VIAL IV SCH ×2 (03:20→08:33)
[2019-09-24] MEDS: CEFAZOLIN 2000MG 2,000 MG/15 ML SYR IV SCH (03:20)
[2019-09-24 05:57] LABS: Hematocrit (blood only) 33.4 % (42-52); Hemoglobin 11.3 g/dL (14.0-18.0); Mean Corpuscular Hemoglobin 30.8 pg (25-34); Mean Corpuscular Hgb Conc 33.8 g/dL (32-36); Mean Platelet Volume 10.4 fL (7.4-10.4); Platelet Count 121 K/uL (130-400); RDW Coefficient of Variation 12.1 % (11.5-14.5); RDW Standard Deviation 40.5 fL (36.4-46.3); Red Blood Count 3.67 M/uL (4.7-6.1); White Blood Count 15.74 K/uL (4.8-10.8)
[2019-09-24] MEDS: TRANEXAMIC ACID 1,000 MG **IV Pre-op IV SCH (06:15)
[2019-09-24 06:33] LABS: BUN Creatinine Ratio 33.5 (10-20); Calcium 8.6 mg/dl (8.5-10.1); Creatinine Clr Calc Pharmacy 62.7 ml/min; Est GFR (African American) 89.6; Est GFR (Non-African American) 77.3; Potassium 4.2 mmol/L (3.5-5.1)
--- NOTE | 2019-09-24 07:32 | Orthopedic Progress Note ---
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 Denies F/C/N/V/SOB/CP. Review of Systems Review of Systems: All systems reviewed & are unremarkable except as noted in HPI & below Constitutional: as per Subjective / HPI Physical Exam Physical Exam: LLE NVSI +EHL/FHL/TA/GS SILT grossly, +2 DP pulse, compartments soft NT, dressing cdi. Constitutional: WD/WN, vitals as above Results & Data Vital Signs (Past 12 Hours) Vital Signs Temp Pulse Resp BP Pulse Ox 09/24/19 07:22 36.7 C 79 16 148/75 H 94 09/24/19 03:27 36.9 C 67 16 129/73 93 09/23/19 23:25 36.5 C 67 16 130/73 92 Laboratory Results 09/24/19 09/24/19 09/23/19 Range/Units 05:20 05:20 09:10 WBC 15.74 H (4.8-10.8) K/uL RBC 3.67 L (4.7-6.1) M/uL Hgb 11.3 L (14.0-18.0) g/dL Hct 33.4 L (42-52) % MCV 91.0 (80-100) fL MCH 30.8 (25-34) pg MCHC 33.8 (32-36) g/dL RDW Std Deviation 40.5 (36.4-46.3) fL RDW Coeff of Jimena 12.1 (11.5-14.5) % Plt Count 121 L (130-400) K/uL MPV 10.4 (7.4-10.4) fL Sodium 137 (136-145) mmol/L Potassium 4.2 (3.5-5.1) mmol/L Chloride 106 (98-107) mmol/L Carbon Dioxide 27 (21-32) mmol/L Anion Gap 4.0 (3-11) BUN 31 H (7-18) mg/dl Creatinine 0.94 (0.6-1.4) mg/dl Est Cr Clr Drug Dosing 62.7 ml/min Est GFR ( Amer) 89.6 Est GFR (Non-Af Amer) 77.3 BUN/Creatinine Ratio 33.5 H (10-20) Glucose 117 H (70-99) mg/dl Calcium 8.6 (8.5-10.1) mg/dl Blood Type AB Positive Antibody Screen NEGATIVE Crossmatch See Detail
--- NOTE | 2019-09-24 07:56 | Anesthesiology Progress Note ---
Date of Service September 24, 2019 Anesthesia Post Procedure Vital Signs Vital Signs: Temp Pulse Pulse Pulse Pulse Resp BP 09/24/19 07:22 36.7 C 79 16 148/75 H 09/24/19 03:27 36.9 C 67 16 129/73 09/23/19 23:25 36.5 C 67 16 130/73 09/23/19 19:22 36.7 C 74 16 145/80 H 09/23/19 17:29 36.7 C 70 16 169/93 H 09/23/19 16:15 36.5 C 68 16 159/96 H 09/23/19 15:48 36.4 C L 69 16 155/80 H 09/23/19 14:58 36.5 C 61 16 166/96 H 09/23/19 14:43 36.4 C L 62 16 132/82 09/23/19 14:10 61 21 128/79 09/23/19 14:00 36.3 C L 64 17 136/84 09/23/19 13:50 60 16 133/81 09/23/19 13:40 64 12 128/73 09/23/19 13:30 62 16 115/71 09/23/19 13:20 58 L 11 L 122/70 09/23/19 13:10 59 L 11 L 120/68 09/23/19 13:00 64 15 117/69 09/23/19 12:50 60 11 L 103/65 09/23/19 12:40 63 13 100/60 09/23/19 12:31 36.3 C L 70 13 84/47 L 09/23/19 09:08 36.4 C L 70 20 167/94 H Pulse Ox 09/24/19 07:22 94 09/24/19 03:27 93 09/23/19 23:25 92 09/23/19 19:22 90 09/23/19 17:29 92 09/23/19 16:15 93 09/23/19 15:48 94 09/23/19 14:58 96 09/23/19 14:43 96 09/23/19 14:10 93 09/23/19 14:00 93 09/23/19 13:50 93 09/23/19 13:40 95 09/23/19 13:30 94 09/23/19 13:20 93 09/23/19 13:10 92 09/23/19 13:00 94 09/23/19 12:50 96 09/23/19 12:40 96 09/23/19 12:31 96 09/23/19 09:08 96 Pain Intensity Left Knee: Pain Intensity: 2 Transfer of Care Handoff Completed per policy Notes Mental Status: alert / awake / arousable Patient Amnestic to Procedure: Yes Nausea / Vomiting: adequately controlled Pain: adequately controlled Neuraxial Anesthesia: was administered and sensory block resolved Anesthetic Complications: no major complications apparent and Pt Satisfied with anesthetic care
[2019-09-24] MEDS: DOCUSATE SODIUM 100 MG CAP PO SCH (08:32)
[2019-09-24] MEDS ORDERED: MULTIVITAMIN TAB PO SCH (09:00)
[2019-09-24] MEDS ORDERED: hydroCHLOROthiazide 25 MG TAB PO SCH (09:00)
[2019-09-24] MEDS ORDERED: ASPIRIN 81 MG ECTAB PO SCH (09:00)
[2019-09-24] MEDS ORDERED: FERROUS SULFATE 325 MG TAB PO SCH (09:00)
[2019-09-24] MEDS ORDERED: CeleBREX 200 MG CAP PO SCH (21:00)
== END 2019-09-24 12:08 | disposition home or self-care (01) | DRG 468 ==
LOC: ASU 08:37 → 3E 12:54